=== PATIENT | female | born 1945 | race Caucasian/White ===

== ENCOUNTER 2018-04-10 12:39 | Emergency (ER) | payer MEDICARE, OTHER ==
[~2018-04-10] VITALS: Ht 162.6 cm; Wt 97.5 kg
[~2018-04-10 12:39] MED LIST: K-Dur20 MEQ PO; Lasix20 MG PO; Macrodantin100 MG PO; Prednisone20 MG PO; UBID10 PO; VITAMIN B-1100 MG PO
[2018-04-10 13:30] LABS: BASOPHILS ABSOLUTE AUTO 0.02 K/mm3 (0.00-0.23); BASOPHILS PERCENT AUTO 0 % (0-2); EOSINOPHILS ABSOLUTE AUTO 0.08 K/mm3 (0.00-0.68); EOSINOPHILS PERCENT AUTO 1 % (0-6); Hematocrit 40.3 % (33.0-51.0); Hemoglobin 13.6 g/dL (11.5-16.0); IMMATURE GRAN ABSOLUTE AUTO 0.02 K/mm3 (0.00-0.10); IMMATURE GRAN PERCENT AUTO 0 % (0-1); LYMPHOCYTES ABSOLUTE AUTO 2.49 K/mm3 (0.84-5.20); LYMPHOCYTES PERCENT AUTO 39 % (21-46); MONOCYTES ABSOLUTE AUTO 0.47 K/mm3 (0.16-1.47); MONOCYTES PERCENT AUTO 7 % (4-13); Mean Corpuscular HGB 31.4 pg (26.0-34.0); Mean Corpuscular HGB Conc 33.7 g/dL (31.5-36.5); Mean Corpuscular Volume 93 fL (80-100); Mean Platelet Volume 9.2 fL (9.1-12.4); NEUTROPHILS ABSOLUTE AUTO 3.37 K/mm3 (1.96-9.15); NEUTROPHILS PERCENT AUTO 52 % (41-73); Platelet Count 259 K/mm3 (150-400); RDW Coefficient Variation 12.6 % (11.7-14.2); RDW Standard Deviation 43.6 fL (35.1-46.3); Red Blood Cell Count 4.33 M/mm3 (3.80-5.20); White Blood Cell Count 6.45 K/mm3 (4.00-11.30)
[2018-04-10 13:48] LABS: Alanine Aminotransfer (ALT/SGP 37 U/L (12-78); Albumin, Blood 3.7 g/dL (3.4-5.0); Albumin/Globulin Ratio 0.9 (0.8-1.8); Alk Phos 84 U/L (50-136); Anion Gap 8 mmol/L (6-16); Aspartate Aminotrans (AST/SGOT 27 U/L (12-37); Bilirubin, Total 0.4 mg/dL (0.1-1.0); Blood Urea Nitrogen 9 mg/dL (8-24); CO2, Blood 24 mmol/L (21-32); Calcium, Blood 8.7 mg/dL (8.5-10.1); Chloride, Blood 106 mmol/L (98-108); Glomerular Filtration Rate >60 (60-); Glucose, Blood 122 mg/dL (70-99); Potassium, Blood 4.1 mmol/L (3.5-5.5); Sodium, Blood 138 mmol/L (136-145); Total Protein, Blood 7.7 g/dL (6.4-8.2)
[2018-04-10 13:55] LABS: International Normalized Ratio 1.02; Prothrombin Time Results 10.5 Sec (9.7-11.5)
[2018-04-10] MEDS ORDERED: CARV3.125 PO (14:08)
[2018-04-10] MEDS ORDERED: Acetic Acid15 ML (14:10)
[2018-04-10] MEDS ORDERED: Motion Sickness25 M1 PO (14:47)
== END 2018-04-10 15:35 | disposition home or self-care (01) ==
LOC: ER 12:39
PROVIDERS: Emergency Medicine
DX: R42 Dizziness and giddiness (principal); Z88.0 Allergy status to penicillin; Z88.2 Allergy status to sulfonamides; Z88.1 Allergy status to other antibiotic agents; Z79.899 Other long term (current) drug therapy; Z79.52 Long term (current) use of systemic steroids; I10 Essential (primary) hypertension
CPT/HCPCS: 36415; 80053; 85025; 85610; 85730; 93005; 93010; 96361; 96374; 99284-25; J1100; J7030

== ENCOUNTER 2019-01-30 17:54 | Emergency (ER) | payer MEDICARE, OTHER ==
[~2019-01-30] VITALS: Ht 162.6 cm; Wt 102.1 kg
[~2019-01-30 17:54] MED LIST changes: +Acetic Acid15 ML; +CARV3.125 PO; +Motion Sickness25 M1 PO
[2019-01-30 18:46] LABS: BASOPHILS ABSOLUTE AUTO 0.03 K/mm3 (0.00-0.23); BASOPHILS PERCENT AUTO 1 % (0-2); EOSINOPHILS ABSOLUTE AUTO 0.21 K/mm3 (0.00-0.68); EOSINOPHILS PERCENT AUTO 3 % (0-6); Hematocrit 40.2 % (33.0-51.0); Hemoglobin 13.4 g/dL (11.5-16.0); IMMATURE GRAN ABSOLUTE AUTO 0.01 K/mm3 (0.00-0.10); IMMATURE GRAN PERCENT AUTO 0 % (0-1); LYMPHOCYTES ABSOLUTE AUTO 2.69 K/mm3 (0.84-5.20); LYMPHOCYTES PERCENT AUTO 43 % (21-46); MONOCYTES ABSOLUTE AUTO 0.58 K/mm3 (0.16-1.47); MONOCYTES PERCENT AUTO 9 % (4-13); Mean Corpuscular HGB 31.3 pg (26.0-34.0); Mean Corpuscular HGB Conc 33.3 g/dL (31.5-36.5); Mean Corpuscular Volume 94 fL (80-100); Mean Platelet Volume 9.1 fL (9.1-12.4); NEUTROPHILS ABSOLUTE AUTO 2.73 K/mm3 (1.96-9.15); NEUTROPHILS PERCENT AUTO 44 % (41-73); Platelet Count 277 K/mm3 (150-400); RDW Coefficient Variation 12.8 % (11.7-14.2); RDW Standard Deviation 44.3 fL (35.1-46.3); Red Blood Cell Count 4.28 M/mm3 (3.80-5.20); White Blood Cell Count 6.25 K/mm3 (4.00-11.30)
[2019-01-30 19:10] LABS: Alanine Aminotransfer (ALT/SGP 37 U/L (12-78); Albumin, Blood 4.2 g/dL (3.4-5.0); Albumin/Globulin Ratio 1.2 (0.8-1.8); Alk Phos 62 U/L (50-136); Anion Gap 5 mmol/L (6-16); Aspartate Aminotrans (AST/SGOT 18 U/L (12-37); Bilirubin, Total 0.5 mg/dL (0.1-1.0); Blood Urea Nitrogen 14 mg/dL (8-24); Bun/Creatinine Ratio 17.4 (12.0-20.0); CO2, Blood 27 mmol/L (21-32); Calcium, Blood 9.4 mg/dL (8.5-10.1); Chloride, Blood 108 mmol/L (98-108); Globulin, Blood 3.5 g/dL (2.2-4.0); Glomerular Filtration Rate >60 (60-); Glucose, Blood 134 mg/dL (70-99); Potassium, Blood 3.5 mmol/L (3.5-5.5); Sodium, Blood 140 mmol/L (136-145); Total Protein, Blood 7.7 g/dL (6.4-8.2)
[2019-01-30] MEDS ORDERED: LOSA25 PO (21:47)
[2019-01-30] MEDS ORDERED: METF500 (21:47)
[2019-01-30] MEDS ORDERED: CYCL10 PO (22:45)
== END 2019-01-30 23:02 | disposition home or self-care (01) ==
LOC: ER 17:54
PROVIDERS: Physician Assistant
DX: M79.89 Other specified soft tissue disorders (principal); Z88.0 Allergy status to penicillin; Z88.2 Allergy status to sulfonamides; Z88.1 Allergy status to other antibiotic agents; Z79.899 Other long term (current) drug therapy; Z79.84 Long term (current) use of oral hypoglycemic drugs; I10 Essential (primary) hypertension; E11.9 Type 2 diabetes mellitus without complications; E78.00 Pure hypercholesterolemia, unspecified
CPT/HCPCS: 36415; 80053; 83880; 85025; 99283; A9270-GY

== ENCOUNTER → 2021-07-23 | Outpatient (CLI) | payer MEDICARE, OTHER ==
[~2021-07-23] MED LIST changes: +CYCL10 PO; +LOSA25 PO; +METF500
[2021-07-30 13:42] LABS: Stool Occult Bld Immuno 1 Negative (NEGATIVE)
== END | disposition home or self-care (01) ==
LOC: LAB SHORT 12:00
PROVIDERS: Physician Assistant
DX: Z12.11 Encounter for screening for malignant neoplasm of colon (principal)
CPT/HCPCS: G0328

== ENCOUNTER 2025-07-03 08:48 | Day surgery (SDC) | payer MEDICARE, OTHER ==
[~2025-07-03] VITALS: Ht 159 cm; Wt 96.0 kg
[~2025-07-03 08:48] MED LIST changes: +Aspir 8181 MG PO; +EZETIMIBE10 M6 PO; -METF500; +METF500 PO; +Norco 5-325 Ta1 EACH PO
[2025-07-03] MEDS ORDERED: TRIAMCINOL TOP (10:05)
[2025-07-03] MEDS ORDERED: Hydrochloroth12.5 MG PO (10:06)
[2025-07-03 10:08] VITALS: BP 159/84
--- NOTE | 2025-07-03 10:08 | NUR ---
History, Chart, Medications and Allergies reviewed before start of procedure. Patient up to Ambulate independently. Gait steady. Pre-Op teaching done. Pt verbalizes understanding. Patient confirms NPO status and agrees with scheduled surgery. Patient states colon prep results light yellow without sediment. Patient States Post-Procedure ride home has been arranged.
--- NOTE | 2025-07-03 10:32 | NUR ---
07/03/25 1032 Lee Lott History, Chart, Medications and Allergies reviewed before start of procedure.MONITOR INTACT WITH CONTINUOUS PULSE OXIMETRY, CONTINUOUS END TITAL CO2, 3-LEAD EKG AND INTERMITTENT BLOOD PRESSURE.O2 VIA POM INTACT THROUGHOUT SEDATION/PROCEDURE.See Anesthesia record.
[2025-07-03 11:00] VITALS: BP 124/75
== END 2025-07-03 11:12 | disposition home or self-care (01) ==
LOC: ORSCMMR 08:48 → ORD 11:30
PROVIDERS: Internal Medicine Gastroenterology
PROC: 0DBN8ZX Excision of Sigmoid Colon, Via Natural or Artificial Opening Endoscopic, Diagnostic (ICD-10-PCS; principal; 2025-07-03 11:30)
DX: Z12.11 Encounter for screening for malignant neoplasm of colon (principal); D12.5 Benign neoplasm of sigmoid colon; Z80.0 Family history of malignant neoplasm of digestive organs; I10 Essential (primary) hypertension; E11.9 Type 2 diabetes mellitus without complications; G47.33 Obstructive sleep apnea (adult) (pediatric); E66.9 Obesity, unspecified; Z68.38 Body mass index [BMI] 38.0-38.9, adult; Z79.84 Long term (current) use of oral hypoglycemic drugs; Z79.899 Other long term (current) drug therapy
CPT/HCPCS: 82947; 88305; J2704; J7120